=== PATIENT | male | born 1980 | race American Indian/Alaskan Native ===

== ENCOUNTER 2017-08-24 19:07 | Emergency (ER) | payer OTHER ==
[2017-08-25 04:27] LABS: Basophils # (Auto) 0.1 K/mm3 (0.0-0.1); Basophils % (Auto) 0.9 % (0.0-1.8); Eosinophils # (Auto) 0.1 K/mm3 (0.0-0.4); Eosinophils % (Auto) 0.9 % (0.0-4.3); Hematocrit 42.4 % (35.5-45.6); Hemoglobin 14.4 gm/dl (11.8-15.2); Lymphocytes # (Auto) 1.7 K/mm3 (1.2-5.4); Lymphocytes % (Auto) 27.7 % (13.4-35.0); Mean Corpuscular HGB Conc 34 % (32-34); Mean Corpuscular Hemoglobin 30 pg (28-32); Mean Corpuscular Volume 88 fl (84-94); Monocytes # (Auto) 0.9 K/mm3 (0.0-0.8); Monocytes % (Auto) 15.3 % (0.0-7.3); Platelet Count 229 K/mm3 (140-440); Red Cell Distribution Width 13.4 % (13.2-15.2)
[2017-08-25 04:34] LABS: Bilirubin,Urine NEG (Negative); Blood,Urine NEG (Negative); Color,Urine Yellow (Yellow); Hyaline Casts,Urine 3 /LPF; Mucus,Urine 3+ /HPF; Nitrite,Urine NEG (Negative); Protein,Urine <15 mg/dL mg/dL (Negative); Urobilinogen,Urine < 2.0 mg/dL (<2.0)
[2017-08-25 04:42] LABS: BUN/Creatinine Ratio 14; Blood Urea Nitrogen 11 mg/dL (9-20); Calcium 8.6 mg/dL (8.4-10.2); Hemolysis Index 9
--- NOTE | 2017-08-25 04:58 | XRay Report ---
FINAL REPORT EXAM: XR CHEST ROUTINE 2V HISTORY: cough, SOB, Congestion TECHNIQUE: PA and lateral views of the chest were submitted. FINDINGS: Heart size and mediastinum appear normal. The lungs are clear. Pleural fluid is not seen. The bones and soft tissues are well maintained. IMPRESSION: Within normal limits.
--- NOTE | 2017-08-25 07:00 | Emergency Department Report ---
- General Chief Complaint: Upper Respiratory Infection Stated Complaint: NAUSEA/ COUGH/ FLU LIKE S/S Time Seen by Provider: 08/25/17 06:38 Source: patient Mode of arrival: Ambulatory Limitations: No Limitations - History of Present Illness MD Complaint: fever, cough, sore throat, nasal congestion -: days(s) Severity: moderate Quality: aching Consistency: constant Improves With: OTC cold medicine Associated Symptoms: fever, chills, cough. denies: right sweats, weight loss Treatments Prior to Arrival: "cold medicine" - Related Data Previous Rx's Medication Instructions Recorded Last Taken Type Fluticasone [Flonase] 2 sprays NS QDAY PRN #1 bottle 08/25/17 Unknown Rx guaiFENesin/CODEINE [Robitussin AC] 10 ml PO Q6HR PRN #120 oral.liqd 08/25/17 Unknown Rx Allergies Allergy/AdvReac Type Severity Reaction Status Date / Time shellfish derived Allergy Itching Verified 08/24/17 20:21 ED Review of Systems ROS: Stated complaint: NAUSEA/ COUGH/ FLU LIKE S/S Other details as noted in HPI Comment: All other systems reviewed and negative Constitutional: fever, weakness Eyes: as per HPI. denies: eye discharge ENT: as per HPI Respiratory: no symptoms reported Cardiovascular: as per HPI Endocrine: no symptoms reported Skin: as per HPI Neurological: as per HPI Hematological/Lymphatic: as per HPI ED Past Medical Hx - Past Medical History Previous Medical History?: No Hx Hypertension: No Hx CVA: No Hx Heart Attack/AMI: No Hx Congestive Heart Failure: No Hx Diabetes: No Hx Deep Vein Thrombosis: No Hx Pulmonary Embolism: No Hx GERD: No Hx Liver Disease: No Hx Renal Disease: No Hx of Cancer: No Hx Sickle Cell Disease: No Hx Arthritis: No Hx Headaches / Migraines: No Hx Seizures: No Hx Kidney Stones: No Hx Psychiatric Treatment: No Hx Asthma: No Hx COPD: No Hx Tuberculosis: No Hx Dementia: No Hx HIV: No - Surgical History Past Surgical History?: Yes Additional Surgical History: hernia - Social History Smoking Status: Current Every Day Smoker - Medications Home Medications: Home Medications Medication Instructions Recorded Confirmed Last Taken Type Fluticasone [Flonase] 2 sprays NS QDAY PRN #1 bottle 08/25/17 Unknown Rx guaiFENesin/CODEINE [Robitussin AC] 10 ml PO Q6HR PRN #120 oral.liqd 08/25/17 Unknown Rx ED Physical Exam - General Limitations: No Limitations General appearance: alert - Head Head exam: Present: normocephalic - Eye Eye exam: Present: normal appearance, PERRL, EOMI. Absent: conjunctival injection - ENT ENT exam: Present: TM's normal bilaterally - Respiratory Respiratory exam: Present: normal lung sounds bilaterally ED Course Vital Signs 08/24/17 08/25/17 20:16 07:10 Temperature 100.6 F H 98.3 F Pulse Rate 100 H 77 Respiratory 18 20 Rate Blood Pressure 118/39 Blood Pressure 129/77 [Right] O2 Sat by Pulse 100 98 Oximetry ED Medical Decision Making - Lab Data Result diagrams: 08/25/17 04:06 08/25/17 04:06 - Medical Decision Making Star is a 36 year old male who presents to the emergency room complaining of flu like symptoms. He reports fever, cough, chills, running nose for 2-3 days. Over the counter medication Tylenol Cold provided no relief. Upon physical examination erythema and swelling noted in nose. CMP, influenza A and B, urinalysis, and chest xray. Potassium 3.2. 20mEq given. Patient diagnosed with upper respiratory infection. Flonase and Robtussin AC given for cough. Critical care attestation.: If time is entered above; I have spent that time in minutes in the direct care of this critically ill patient, excluding procedure time. ED Disposition Clinical Impression: Hypokalemia Upper respiratory infection Qualifiers: URI type: unspecified viral URI Qualified Code(s): J06.9 - Acute upper respiratory infection, unspecified Disposition: - TO HOME OR SELFCARE Is pt being admited?: No Does the pt Need Aspirin: No Condition: Stable Instructions: Upper Respiratory Infection (ED) Additional Instructions: Patient instructed to follow up with PCP in 3-5 days. Patient educated on signs and symptoms of a upper respiratory virus. Patient encouraged to stay hydrated. Drink plenty of fluid. If symptoms do not improve or worsen patient is to return to the emergency room immediately. Prescriptions: Fluticasone [Flonase] 2 sprays NS QDAY PRN #1 bottle PRN Reason: reason for use guaiFENesin/CODEINE [Robitussin AC] 10 ml PO Q6HR PRN #120 oral.liqd PRN Reason: Cough Referrals: KEARA JEAN MD [Staff Physician] - 3-5 Days Forms: Work/School Release Form(ED)
[2017-08-25] MEDS ORDERED: K-DUR PO ONE (07:03)
[2017-08-25 07:21] VITALS: BP 129/77
== END 2017-08-25 07:37 | disposition home or self-care (01) ==
LOC: ED 19:07
DX: J06.9 Acute upper respiratory infection, unspecified (principal); E87.6 Hypokalemia; F17.200 Nicotine dependence, unspecified, uncomplicated; Z91.013 Allergy to seafood
CPT/HCPCS: 36415; 71046; 80048; 81001; 82140; 82805; 84484; 85025; 87400; 99284